=== PATIENT | male | born 1995 | race Hispanic/Latino ===

== ENCOUNTER 2020-02-26 03:58 | Emergency (ER) | payer SELFPAY ==
[2020-02-26] MEDS ORDERED: KETOROLAC 30MG VIAL (30MG/ML) ONE (04:21)
[2020-02-26 04:23] LABS: BASOPHILS % (AUTO) 0.8 % (0.0-5.0); EOSINOPHILS % (AUTO) 2.6 % (0.0-8.0); HEMATOCRIT 45.9 % (42-54); MEAN CORPUSCULAR HEMOGLOBIN 32.1 pg (27.0-33.0); MEAN CORPUSCULAR HGB CONC 32.9 g/dL (32.0-36.0); MEAN CORPUSCULAR VOLUME 97.5 fL (79-99); MONOCYTES % (AUTO) 8.3 % (3.0-13.0); NEUTROPHILS % (AUTO) 64.8 % (40.0-77.0); PLATELET COUNT (AUTO) 256 K/uL (130-400); RED BLOOD CELL COUNT(AUTO) 4.71 MIL/uL (4.50-6.20); RED CELL DISTRIBUTION WIDTH 11.9 % (11.0-15.5); WHITE BLOOD COUNT (AUTO) 10.6 K/uL (4.8-10.8)
[2020-02-26 04:26] LABS: APPEARANCE,URINE Cloudy (CLEAR); BILIRUBIN,URINE Negative (NEGATIVE); COLOR,URINE Yellow (YELLOW); GLUCOSE, URINE (UA) Negative (NEGATIVE); KETONES,URINE Negative (NEGATIVE); LEUKOCYTE ESTERASE ,URINE Large (NEGATIVE); NITRATE,URINE Negative (NEGATIVE); OCCULT BLOOD,URINE Small (NEGATIVE); PROTEIN,URINE Negative (NEGATIVE)
[2020-02-26 04:31] LABS: CREATININE 0.9 mg/dL (0.5-1.5); POTASSIUM 3.6 mmol/L (3.5-5.1)
[2020-02-26 04:35] LABS: ALBUMIN 4.1 g/dL (3.5-5.0); BILIRUBIN,TOTAL 0.3 mg/dL (0.2-1.0); TOTAL PROTEIN, SERUM 7.6 g/dL (6.0-8.3)
[2020-02-26 04:35] LABS: WBC,URINE TNTC /HPF (0-1)
[2020-02-26 04:36] LABS: BACTERIA,URINE Moderate /HPF (None Seen)
[2020-02-26] MEDS ORDERED: CEFTRIAXONE 2GM VIAL ONE (05:03)
[2020-02-26] MEDS ORDERED: 0.9%NACL 100ML 100 ML IV ONE (05:03)
[2020-02-26] MEDS ORDERED: PHENAZOPYRIDINE HCL 200 MG TABLET ONE (05:39)
[2020-02-26] MEDS ORDERED: DICYCLOMINE HCL 20 MG TAB ONE (05:39)
== END 2020-02-26 06:19 | disposition home or self-care (01) ==
LOC: EDH 03:58
DX: N39.0 Urinary tract infection, site not specified (principal)
CPT/HCPCS: 36415; 74176; 80053; 81001; 85025; 87088; 96361; 96365; 96375; 99284; J0696; J1885

== ENCOUNTER 2022-02-09 18:59 | Emergency (ER) | payer OTHER ==
[~2022-02-09] VITALS: Ht 160 cm; Wt 84.4 kg
[2022-02-09 19:13] VITALS: BP 142/90
[2022-02-09] MEDS ORDERED: AMOX1TAB16 PO (20:15)
[2022-02-09] MEDS ORDERED: IBUP-2070 PO (20:15)
[2022-02-09] MEDS ORDERED: DEXAMETHASONE SOD PHOSPHATE 4 MG/ML 1ML VIAL IM ONE (20:30)
== END 2022-02-09 20:26 | disposition home or self-care (01) ==
LOC: EDH 18:59
DX: K11.20 Sialoadenitis, unspecified (principal)
CPT/HCPCS: 99283; 96372; J1100